=== PATIENT | female | born 1990 | race Caucasian/White ===

== ENCOUNTER 2021-11-24 14:31 | Emergency (ER) | payer MEDICAID ==
[~2021-11-24] VITALS: Ht 162.6 cm; Wt 88.8 kg
[~2021-11-24 14:31] MED LIST: PRENATAL
[2021-11-24 21:58] VITALS: BP 133/95
[2021-11-24] MEDS ORDERED: KETOROLAC 60MG/2ML VIAL IM ONE (22:00)
[2021-11-24] MEDS ORDERED: CYCL10TA7 MT (22:06)
[2021-11-24] MEDS ORDERED: IBUP-2029 MT (22:06)
== END 2021-11-24 22:34 | disposition home or self-care (01) ==
LOC: ER 15:24
DX: M54.12 Radiculopathy, cervical region (principal); R03.0 Elevated blood-pressure reading, without diagnosis of hypertension
CPT/HCPCS: 82962; 96372; 99283; J1885